=== PATIENT | female | born 1940 | race Asian ===

== ENCOUNTER 2023-09-08 10:06 | Inpatient (IN) ==
[~2023-09-08 10:06] MED LIST: Buffered Lidocaine 1% SYRIN 1 ml INTRADERM ONE; Lactated Ringers 1000 ml BAG 1,000 ML IV SCH
[2023-09-08] MEDS ORDERED: Ondansetron 4 mg VIAL 2 MG/ML 2 ml VIAL IV PRN (10:55)
[2023-09-08] MEDS ORDERED: Naloxone 0.4 mg VIAL 0.4 mg/ml 1 ml VIAL IV PRN (10:55)
[2023-09-08] MEDS ORDERED: fentaNYL 100 mcg/2 ml 50 MCG/ML VIAL IV PRN (10:55)
[2023-09-08] MEDS ORDERED: HYDROmorphone 1 MG/1 ML SYRINGE IV PRN (10:55)
[2023-09-08] MEDS ORDERED: Acetaminophen IV 1 GM/100ML 1,000 MG/100 ML BAG IV PRN (10:55)
[2023-09-08] MEDS ORDERED: Propofol 10 MG/ML 20 ML BTL ONE (11:01)
[2023-09-08] MEDS ORDERED: Dexamethasone IV 4 MG/ML VIAL 1 ml VIAL ONE (11:01)
[2023-09-08] MEDS ORDERED: Lidocaine 2% PF 5 ML VIAL ONE (11:01)
[2023-09-08] MEDS ORDERED: Ondansetron 4 mg VIAL 2 MG/ML 2 ml VIAL ONE (11:01)
[2023-09-08] MEDS ORDERED: fentaNYL 100 mcg/2 ml 50 MCG/ML VIAL ONE (11:02)
[2023-09-08] MEDS ORDERED: Rocuronium 50 mg VIAL 10 mg/ml 5 ml VIAL (50 mg) ONE ×2 (11:02→12:24)
[2023-09-08] MEDS ORDERED: Phenylephrine 40 mcg/mL 10mL (400mcg) SYRINGE ONE (11:04)
[2023-09-08] MEDS ORDERED: CYANOCOBALAMIN 100 MCG PO SCH (11:45)
[2023-09-08] MEDS ORDERED: ETHIODIZED OIL 480 MG/ML IV ONE (12:00)
[2023-09-08] MEDS ORDERED: TOTAL VOLUME ONE (12:30)
[2023-09-08] MEDS ORDERED: CISPLATIN ONE (12:30)
[2023-09-08] MEDS ORDERED: Heparin 2 UNITS/ML IVPREMIX 3,000 UNIT/1,500 ML BAG IV ONE (12:50)
[2023-09-08] MEDS ORDERED: Lidocaine 1% VIAL 10 MG/ML 30 ML VIAL ONE (12:50)
[2023-09-08] MEDS ORDERED: Iohexol 350 (CONTRAST) 100 ML PAK IV ONE ×2 (12:50→13:24)
[2023-09-08] MEDS ORDERED: nitroGLYCERIN DRIP 25,000 MCG/250 ML BTL ONE (14:28)
[2023-09-08] MEDS: KETOROLAC 0.4% RIGHT EYE SCH ×2 (18:15→20:38)
[2023-09-08] MEDS: PREDNISOLONE 1% RIGHT EYE SCH ×2 (18:15→20:38)
[2023-09-09 06:46] LABS: Albumin 2.9 g/dL (3.2-5.2); Calcium 8.9 mg/dL (8.6-10.3); Creatinine, Serum 1.04 mg/dL (0.51-0.95); Globulin 2.9 g/dL (2-4); Potassium 4.9 mmol/L (3.5-5.0); Total Bilirubin 1.4 mg/dL (0.2-1.0); Total Protein 5.8 g/dL (6.4-8.9)
[2023-09-09 06:58] LABS: ABS Lymphocytes 0.5 10^3/uL (1.0-4.8); ABS Monocytes 0.6 10^3/uL (0.0-0.9); ABS Neutrophils 6.1 10^3/uL (1.5-7.6); Eosinophil % 0.1 %; Hematocrit 38.1 % (35-45); Lymphocyte % 6.5 %; Mean Corpuscular Hemoglobin 34.5 pg (27-33); Mean Corpuscular Hgb Conc 34.1 g/dL (31-36); Mean Corpuscular Volume 101.4 fL (80-97); Red Blood Count 3.76 10^6/uL (3.63-4.92); Red Cell Distribution Width 14.1 % (12-17); White Blood Count 7.1 10^3/uL (3.8-11.8)
[2023-09-09 07:29] LABS: Mean Platelet Volume 8.7 fL (7.5-11.2); Platelet Count 66 10^3/uL (150-450)
[2023-09-09] MEDS: PREDNISOLONE 1% RIGHT EYE SCH (09:06)
[2023-09-09] MEDS: KETOROLAC 0.4% RIGHT EYE SCH (09:06)
[2023-09-09 09:15] VITALS: BP 116/71
[2023-09-09] MEDS ORDERED: Benzocaine/Menthol LOZ MT PRN (11:31)
== END 2023-09-09 15:00 | disposition home or self-care (01) | DRG 281 ==
LOC: OR 10:06 → MED 16:51
PROVIDERS: ADMIT Internal Medicine Hematology & Oncology; ATTEND Internal Medicine Hematology & Oncology

== ENCOUNTER 2024-06-28 10:38 | Inpatient (IN) ==
[2024-06-28 11:41] LABS: Hematocrit 38.4 % (35-45); Mean Corpuscular Hemoglobin 36.2 pg (27-33); Mean Corpuscular Hgb Conc 33.9 g/dL (31-36); Mean Corpuscular Volume 106.9 fL (80-97); Red Blood Count 3.59 10^6/uL (3.63-4.92); Red Cell Distribution Width 14.3 % (12-17); White Blood Count 2.9 10^3/uL (3.8-11.8)
[2024-06-28 11:46] LABS: Activated Partial Thrombo Time 35.4 seconds (26.0-38.0); INR 1.11 (0.85-1.14)
[2024-06-28] MEDS: cefTRIAXone 1 gm/50 mL D5W 1 GM/50 ML BAG IV ONE (11:55)
[2024-06-28] MEDS ORDERED: Iohexol 350 (CONTRAST) 100 ML PAK IV ONE ×2 (11:59→12:22)
[2024-06-28] MEDS ORDERED: Lidocaine 1% VIAL 10 MG/ML 30 ML VIAL ONE (11:59)
[2024-06-28] MEDS ORDERED: Heparin 2 UNITS/ML IVPREMIX 3,000 UNIT/1,500 ML BAG IV ONE (11:59)
[2024-06-28] MEDS: NS 0.9% 1000 ml BAG 1,000 ML IV ONE (12:00)
[2024-06-28] MEDS ORDERED: Midazolam 5 mg/5 ml VIAL 1 mg/ml 5 ml VIAL (5 mg) ONE (12:00)
[2024-06-28] MEDS ORDERED: ETHIODIZED OIL 480 MG/ML IV ONE (12:00)
[2024-06-28] MEDS ORDERED: fentaNYL 100 mcg/2 ml 50 MCG/ML VIAL ONE ×2 (12:01→14:03)
[2024-06-28] MEDS ORDERED: Ondansetron 4 mg VIAL 2 MG/ML 2 ml VIAL ONE (12:01)
[2024-06-28 12:04] LABS: ABS Eosinophils 0.1 10^3/uL (0.0-0.5); ABS Lymphocytes 0.6 10^3/uL (1.0-4.8); ABS Monocytes 0.4 10^3/uL (0.0-0.9); ABS Neutrophils 1.7 10^3/uL (1.5-7.6); Eosinophil % 4.2 %; Lymphocyte % 22.2 %; Mean Platelet Volume 7.8 fL (7.5-11.2); Nucleated Red Blood Cells % 0.1 %/100WBC (0.0-0.8); Platelet Count 67 10^3/uL (150-450)
[2024-06-28] MEDS ORDERED: Naloxone 0.4 mg VIAL 0.4 mg/ml 1 ml VIAL IV PUSH PRN (12:09)
[2024-06-28] MEDS ORDERED: Flumazenil 0.5 mg/5 ml 0.1 MG/ML 5 ml VIAL IV PRN (12:09)
[2024-06-28 12:19] LABS: Calcium 9.1 mg/dL (8.6-10.3); Creatinine, Serum 0.71 mg/dL (0.51-0.95); eGFR CKD-EPI 83.3 (>60)
[2024-06-28] MEDS ORDERED: HYDROmorphone 0.5 MG/0.5 ML SYRINGE ONE (14:14)
[2024-06-28] MEDS ORDERED: HYDROmorphone 1 MG/1 ML SYRINGE ONE (14:46)
[2024-06-28] MEDS ORDERED: Morphine 2 MG/ML SYRINGE IV PRN (15:15)
[2024-06-28] MEDS: Midazolam 10 mg/10 ml VIAL 1 mg/ml 10 ml VIAL (10 mg) IV SLOW PU ONE (15:56)
[2024-06-28] MEDS: fentaNYL 100 mcg/2 ml 50 MCG/ML VIAL IV SLOW PU ONE (15:56)
[2024-06-28] MEDS: DOXORUBICIN ONE (15:57)
[2024-06-28] MEDS ORDERED: Prochlorperazine 5 mg/ml 2 ml VIAL (10 mg) ONE (15:58)
[2024-06-28] MEDS: Prochlorperazine 5 mg/ml 2 ml VIAL (10 mg) IV PRN (16:05)
[2024-06-28] MEDS: ETHIODIZED OIL 480 MG/ML IV ONE (17:09)
[2024-06-28] MEDS: NS 0.9% 1000 ml BAG 1,000 ML IV SCH (17:10)
[2024-06-28] MEDS: Enoxaparin 40 MG/0.4 ML SYR SUBCUT SCH ×2 (18:40→20:15)
[2024-06-28] MEDS: Morphine 2 MG/ML SYRINGE IV PRN (20:14)
[2024-06-28] MEDS: Ondansetron 4 mg VIAL 2 MG/ML 2 ml VIAL IV PRN (20:14)
[2024-06-28] MEDS: HYDROmorphone 0.5 MG/0.5 ML SYRINGE IV SLOW PU PRN (23:37)
[2024-06-29 11:35] LABS: Albumin 2.9 g/dL (3.2-5.2); Albumin/Globulin Ratio 0.9 (1-3); Globulin 3.1 g/dL (2-4); Total Bilirubin 3.2 mg/dL (0.2-1.0)
[2024-06-29 17:36] LABS: ABS Lymphocytes 0.3 10^3/uL (1.0-4.8); ABS Monocytes 1.1 10^3/uL (0.0-0.9); ABS Neutrophils 5.7 10^3/uL (1.5-7.6); Hemoglobin 12.8 g/dL (11.5-14.3); Lymphocyte % 4.8 %; Mean Corpuscular Hemoglobin 36.2 pg (27-33); Mean Corpuscular Hgb Conc 33.7 g/dL (31-36); Mean Corpuscular Volume 107.3 fL (80-97); Mean Platelet Volume 7.5 fL (7.5-11.2); Platelet Count 68 10^3/uL (150-450); Red Blood Count 3.54 10^6/uL (3.63-4.92); Red Cell Distribution Width 15.1 % (12-17); White Blood Count 7.2 10^3/uL (3.8-11.8)
[2024-06-29 18:12] LABS: Calcium 8.4 mg/dL (8.6-10.3); Creatinine, Serum 0.8 mg/dL (0.51-0.95); Potassium 4.6 mmol/L (3.5-5.0); eGFR CKD-EPI 72.2 (>60)
[2024-06-29 18:18] LABS: Albumin 2.8 g/dL (3.2-5.2); Globulin 2.9 g/dL (2-4); Total Bilirubin 3.3 mg/dL (0.2-1.0); Total Protein 5.7 g/dL (6.4-8.9)
[2024-06-30 08:58] LABS: ABS Lymphocytes 0.5 10^3/uL (1.0-4.8); ABS Monocytes 1.4 10^3/uL (0.0-0.9); ABS Neutrophils 7.8 10^3/uL (1.5-7.6); ABS Nucleated RBC 0.01 10^3/ul; Eosinophil % 0.1 %; Hemoglobin 12.7 g/dL (11.5-14.3); Lymphocyte % 5.6 %; Mean Corpuscular Hemoglobin 36.4 pg (27-33); Mean Corpuscular Hgb Conc 33.5 g/dL (31-36); Mean Corpuscular Volume 108.7 fL (80-97); Mean Platelet Volume 8.1 fL (7.5-11.2); Nucleated Red Blood Cells % 0.1 %/100WBC (0.0-0.8); Platelet Count 50 10^3/uL (150-450); Red Cell Distribution Width 14.8 % (12-17); White Blood Count 9.7 10^3/uL (3.8-11.8)
[2024-06-30 09:24] LABS: Albumin 2.5 g/dL (3.2-5.2); Alkaline Phosphatase 227 U/L (35-149); Anion Gap 2 mmol/L (2-16); Blood Urea Nitrogen 22 mg/dL (6-24); CO2 Carbon Dioxide 24 mmol/L (22-32); Calcium 7.8 mg/dL (8.6-10.3); Chloride 108 mmol/L (101-111); Globulin 2.5 g/dL (2-4); Glucose 109 mg/dL (70-100); Sodium 134 mmol/L (135-145); Total Bilirubin 3.8 mg/dL (0.2-1.0); eGFR CKD-EPI 84.7 (>60)
[2024-06-30 09:49] LABS: ALT 845 U/L (7-52)
[2024-06-30 11:53] LABS: Potassium Redraw 4.8 mmol/L (3.5-5.0)
[2024-07-01 05:54] LABS: ABS Lymphocytes 0.4 10^3/uL (1.0-4.8); ABS Neutrophils 6.3 10^3/uL (1.5-7.6); ABS Nucleated RBC 0.01 10^3/ul; Eosinophil % 0.4 %; Hematocrit 35.5 % (35-45); Hemoglobin 12.1 g/dL (11.5-14.3); Lymphocyte % 4.6 %; Mean Corpuscular Hemoglobin 36.3 pg (27-33); Mean Corpuscular Volume 106.7 fL (80-97); Mean Platelet Volume 8.1 fL (7.5-11.2); Nucleated Red Blood Cells % 0.1 %/100WBC (0.0-0.8); Platelet Count 44 10^3/uL (150-450); Red Blood Count 3.33 10^6/uL (3.63-4.92); Red Cell Distribution Width 14.5 % (12-17); White Blood Count 7.7 10^3/uL (3.8-11.8)
[2024-07-01 06:29] LABS: Calcium 7.4 mg/dL (8.6-10.3); Creatinine, Serum 0.73 mg/dL (0.51-0.95); Potassium 4.4 mmol/L (3.5-5.0); eGFR CKD-EPI 80.5 (>60)
[2024-07-01 06:49] LABS: Albumin/Globulin Ratio 0.9 (1-3); Globulin 2.2 g/dL (2-4); Total Bilirubin 4.8 mg/dL (0.2-1.0); Total Protein 4.2 g/dL (6.4-8.9)
[2024-07-01] MEDS: Iohexol 350 (CONTRAST) 500 ML MDV IV ONE (09:26)
[2024-07-01] MEDS ORDERED: Morphine 2 MG/ML SYRINGE IV PRN (10:34)
[2024-07-01 12:06] LABS: INR 1.67 (0.85-1.14)
[2024-07-02 05:30] LABS: ABS Eosinophils 0.1 10^3/uL (0.0-0.5); ABS Lymphocytes 0.3 10^3/uL (1.0-4.8); ABS Monocytes 1.1 10^3/uL (0.0-0.9); ABS Neutrophils 5.5 10^3/uL (1.5-7.6); ABS Nucleated RBC 0.01 10^3/ul; Eosinophil % 1.9 %; Hemoglobin 11.1 g/dL (11.5-14.3); Lymphocyte % 4.8 %; Mean Corpuscular Hemoglobin 37.3 pg (27-33); Mean Corpuscular Hgb Conc 34.8 g/dL (31-36); Mean Corpuscular Volume 107.1 fL (80-97); Mean Platelet Volume 8.1 fL (7.5-11.2); Nucleated Red Blood Cells % 0.1 %/100WBC (0.0-0.8); Platelet Count 39 10^3/uL (150-450); Red Blood Count 2.99 10^6/uL (3.63-4.92); Red Cell Distribution Width 14.2 % (12-17)
[2024-07-02 05:47] LABS: Albumin 1.8 g/dL (3.2-5.2); Albumin/Globulin Ratio 0.9 (1-3); Calcium 7.4 mg/dL (8.6-10.3); Creatinine, Serum 0.71 mg/dL (0.51-0.95); Globulin 2.1 g/dL (2-4); Potassium 4.2 mmol/L (3.5-5.0); Total Protein 3.9 g/dL (6.4-8.9); eGFR CKD-EPI 83.3 (>60)
[2024-07-02] MEDS: Senna TAB 8.6 mg TAB PO SCH (22:21)
[2024-07-03 07:30] LABS: Albumin 2.1 g/dL (3.2-5.2); Creatinine, Serum 0.69 mg/dL (0.51-0.95); Globulin 2.2 g/dL (2-4); Potassium 4.6 mmol/L (3.5-5.0); Total Bilirubin 4.7 mg/dL (0.2-1.0); Total Protein 4.3 g/dL (6.4-8.9)
[2024-07-03] MEDS: Polyethylene Glycol 3350 17 GM PACKET PO PRN (09:06)
[2024-07-04] MEDS ORDERED: Senna TAB 8.6 mg TAB PO PRN (10:02)
[2024-07-04 10:36] LABS: ABS Eosinophils 0.2 10^3/uL (0.0-0.5); ABS Lymphocytes 0.3 10^3/uL (1.0-4.8); ABS Neutrophils 4.3 10^3/uL (1.5-7.6); Eosinophil % 2.9 %; Hematocrit 31.1 % (35-45); Hemoglobin 10.7 g/dL (11.5-14.3); Lymphocyte % 5.5 %; Mean Corpuscular Hgb Conc 34.5 g/dL (31-36); Mean Corpuscular Volume 107.3 fL (80-97); Mean Platelet Volume 7.9 fL (7.5-11.2); Platelet Count 48 10^3/uL (150-450); Red Cell Distribution Width 14.6 % (12-17); White Blood Count 5.7 10^3/uL (3.8-11.8)
[2024-07-04 11:34] LABS: Albumin 2.1 g/dL (3.2-5.2); Albumin/Globulin Ratio 1.1 (1-3); Calcium 7.6 mg/dL (8.6-10.3); Creatinine, Serum 0.64 mg/dL (0.51-0.95); Potassium 4.5 mmol/L (3.5-5.0); Total Bilirubin 5.5 mg/dL (0.2-1.0); Total Protein 4.1 g/dL (6.4-8.9); eGFR CKD-EPI 86.5 (>60)
[2024-07-04 20:53] LABS: Hematocrit 31.7 % (35-45); Hemoglobin 10.8 g/dL (11.5-14.3); Mean Corpuscular Hemoglobin 36.3 pg (27-33); Mean Corpuscular Hgb Conc 34.2 g/dL (31-36); Mean Corpuscular Volume 106.3 fL (80-97); Mean Platelet Volume 7.4 fL (7.5-11.2); Platelet Count 50 10^3/uL (150-450); Red Blood Count 2.99 10^6/uL (3.63-4.92); Red Cell Distribution Width 14.5 % (12-17); White Blood Count 6.1 10^3/uL (3.8-11.8)
[2024-07-04] MEDS: Pantoprazole VIAL 40 MG VIAL IV ONE (22:59)
[2024-07-05 07:27] LABS: Albumin 2.1 g/dL (3.2-5.2); Calcium 7.9 mg/dL (8.6-10.3); Creatinine, Serum 0.65 mg/dL (0.51-0.95); Globulin 2.1 g/dL (2-4); Potassium 4.8 mmol/L (3.5-5.0); Total Bilirubin 5.2 mg/dL (0.2-1.0); Total Protein 4.2 g/dL (6.4-8.9); eGFR CKD-EPI 86.2 (>60)
[2024-07-05 07:39] LABS: ABS Eosinophils 0.2 10^3/uL (0.0-0.5); ABS Lymphocytes 0.5 10^3/uL (1.0-4.8); ABS Neutrophils 4.6 10^3/uL (1.5-7.6); Eosinophil % 2.8 %; Hematocrit 30.4 % (35-45); Hemoglobin 10.6 g/dL (11.5-14.3); Lymphocyte % 8.3 %; Mean Corpuscular Hemoglobin 37.1 pg (27-33); Mean Corpuscular Hgb Conc 34.9 g/dL (31-36); Mean Corpuscular Volume 106.4 fL (80-97); Mean Platelet Volume 7.9 fL (7.5-11.2); Platelet Count 50 10^3/uL (150-450); Red Blood Count 2.85 10^6/uL (3.63-4.92); Red Cell Distribution Width 14.3 % (12-17); White Blood Count 6.3 10^3/uL (3.8-11.8)
[2024-07-05] MEDS: Polyethylene Glycol 3350 17 GM PACKET PO SCH (08:28)
[2024-07-05] MEDS: Pantoprazole VIAL 40 MG VIAL IV SCH (08:40)
[2024-07-05] MEDS ORDERED: Magnesium Hydroxide LIQ 30 ML UDC PO PRN (09:02)
[2024-07-05] MEDS: Iohexol 350 (CONTRAST) 500 ML MDV IV ONE (13:22)
[2024-07-05] MEDS: Octreotide Acetate 50 MCG in NS 0.9% 50 ML 50 ML IV ONE (21:32)
[2024-07-05] MEDS: Octreotide Acetate 500 MCG in NS 0.9% 100 ml BAG 100 ML IV SCH (22:45)
[2024-07-05] MEDS: Senna TAB 8.6 mg TAB PO SCH (22:47)
[2024-07-06 10:14] LABS: Ferritin 431.8 ng/mL (11-307)
[2024-07-06] MEDS ORDERED: Midazolam 10 mg/10 ml VIAL 1 mg/ml 10 ml VIAL (10 mg) ONE (10:57)
[2024-07-06] MEDS ORDERED: fentaNYL 100 mcg/2 ml 50 MCG/ML VIAL ONE (10:58)
[2024-07-07 12:29] LABS: ABS Eosinophils 0.1 10^3/uL (0.0-0.5); ABS Lymphocytes 0.3 10^3/uL (1.0-4.8); ABS Monocytes 0.8 10^3/uL (0.0-0.9); ABS Neutrophils 3.3 10^3/uL (1.5-7.6); Eosinophil % 2.2 %; Hematocrit 29.6 % (35-45); Lymphocyte % 5.9 %; Mean Corpuscular Hemoglobin 36.4 pg (27-33); Mean Corpuscular Hgb Conc 33.6 g/dL (31-36); Mean Corpuscular Volume 108.3 fL (80-97); Mean Platelet Volume 7.4 fL (7.5-11.2); Platelet Count 74 10^3/uL (150-450); Red Blood Count 2.73 10^6/uL (3.63-4.92); Red Cell Distribution Width 14.8 % (12-17); White Blood Count 4.4 10^3/uL (3.8-11.8)
[2024-07-07 12:51] LABS: ALT 106 U/L (7-52); AST 33 U/L (13-39); Albumin 2.1 g/dL (3.2-5.2); Albumin/Globulin Ratio 0.9 (1-3); Alkaline Phosphatase 146 U/L (35-149); Blood Urea Nitrogen 10 mg/dL (6-24); CO2 Carbon Dioxide 32 mmol/L (22-32); Calcium 7.5 mg/dL (8.6-10.3); Chloride 100 mmol/L (101-111); Creatinine, Serum 0.76 mg/dL (0.51-0.95); Globulin 2.3 g/dL (2-4); Glucose 138 mg/dL (70-100); Potassium 4.8 mmol/L (3.5-5.0); Sodium 132 mmol/L (135-145); Total Bilirubin 6.4 mg/dL (0.2-1.0); Total Protein 4.4 g/dL (6.4-8.9); eGFR CKD-EPI 76.7 (>60)
[2024-07-07 13:57] VITALS: BP 128/62
[2024-07-07] MEDS ORDERED: Lactulose 30 ml UDC PO SCH (21:00)
[2024-07-09 14:40] LABS: Hepatitis Be Antibody Negative (Negative); Hepatitis Be Antigen Negative (Negative)
== END 2024-07-07 14:30 | disposition home or self-care (01) | DRG 950 ==
LOC: SSU 10:38 → CHICATH 10:38
PROVIDERS: ADMIT Student in an Organized Health Care Education/Training Program; ATTEND Student in an Organized Health Care Education/Training Program

== ENCOUNTER 2024-08-29 23:53 | Inpatient (IN) ==
[2024-08-30 02:10] LABS: ABS Eosinophils 0.1 10^3/uL (0.0-0.5); ABS Lymphocytes 0.5 10^3/uL (1.0-4.8); ABS Monocytes 0.6 10^3/uL (0.0-0.9); ABS Neutrophils 2.7 10^3/uL (1.5-7.6); Eosinophil % 2.5 %; Hematocrit 35.4 % (35-45); Hemoglobin 12.1 g/dL (11.5-14.3); Lymphocyte % 12.3 %; Mean Corpuscular Hemoglobin 36.6 pg (27-33); Mean Corpuscular Hgb Conc 34.3 g/dL (31-36); Mean Corpuscular Volume 106.8 fL (80-97); Mean Platelet Volume 7.7 fL (7.5-11.2); Nucleated Red Blood Cells % 0.1 %/100WBC (0.0-0.8); Platelet Count 63 10^3/uL (150-450); Red Blood Count 3.31 10^6/uL (3.63-4.92); White Blood Count 3.9 10^3/uL (3.8-11.8)
[2024-08-30 02:16] LABS: Activated Partial Thrombo Time 35.5 seconds (26.0-38.0); INR 1.42 (0.85-1.14)
[2024-08-30 02:27] LABS: High Sens Troponin Baseline 11 pg/mL (<15)
[2024-08-30 02:41] LABS: ALT 47 U/L (7-52); AST 55 U/L (13-39); Albumin 2.3 g/dL (3.5-5.7); Albumin/Globulin Ratio 0.7 (1-3); Alkaline Phosphatase 248 U/L (35-149); Blood Urea Nitrogen 9 mg/dL (6-24); C Reactive Protein 13.18 mg/L (<8.01); CO2 Carbon Dioxide 31 mmol/L (22-32); Calcium 8.4 mg/dL (8.6-10.3); Chloride 105 mmol/L (101-111); Creatinine, Serum 0.73 mg/dL (0.51-0.95); Globulin 3.1 g/dL (2-4); Glucose 115 mg/dL (70-100); Potassium 4.2 mmol/L (3.5-5.0); Sodium 136 mmol/L (135-145); Total Bilirubin 4.6 mg/dL (0.2-1.0); Total Protein 5.4 g/dL (6.4-8.9); eGFR CKD-EPI 80.5 (>60)
[2024-08-30 03:49] LABS: High Sensitivity Troponin 1 Hr 11 pg/mL (<15)
[2024-08-30] MEDS: Iohexol 300 (CONTRAST) 10 ML SDV IV ONE (04:30)
[2024-08-30 06:36] LABS: Urine Appearance Clear; Urine Bilirubin Negative (Negative); Urine Blood Negative (Negative); Urine Color Yellow; Urine Glucose Negative (Negative); Urine Ketones Negative (Negative); Urine Nitrite Negative (Negative); Urine Protein Negative (Negative); Urine Specific Gravity 1.013 (1.002-1.030); Urine Urobilinogen 1+ (Negative)
[2024-08-30] MEDS ORDERED: Lidocaine 2% JELLY 6 ML Topical TOPICAL ONE (12:50)
[2024-08-30] MEDS: Lidocaine 2% JELLY 6 ML Topical TOPICAL ONE (13:30)
[2024-08-30] MEDS: Pantoprazole VIAL 40 MG VIAL IV SCH (16:38)
[2024-08-30] MEDS: Lactulose 300 ML for PR 200 GM/300 ML BTL PR SCH (16:52)
[2024-08-31 07:54] LABS: INR 1.64 (0.85-1.14)
[2024-08-31 08:03] LABS: Albumin/Globulin Ratio 0.8 (1-3); Calcium 8.4 mg/dL (8.6-10.3); Creatinine, Serum 0.83 mg/dL (0.51-0.95); Globulin 2.6 g/dL (2-4); Potassium 4.8 mmol/L (3.5-5.0); Total Bilirubin 5.7 mg/dL (0.2-1.0); Total Protein 4.6 g/dL (6.4-8.9)
[2024-08-31 08:10] LABS: ABS Eosinophils 0.1 10^3/uL (0.0-0.5); ABS Lymphocytes 0.5 10^3/uL (1.0-4.8); ABS Neutrophils 5.2 10^3/uL (1.5-7.6); Eosinophil % 0.9 %; Hematocrit 32.9 % (35-45); Hemoglobin 11.1 g/dL (11.5-14.3); Lymphocyte % 7.2 %; Mean Corpuscular Hemoglobin 36.6 pg (27-33); Mean Corpuscular Hgb Conc 33.7 g/dL (31-36); Mean Corpuscular Volume 108.4 fL (80-97); Mean Platelet Volume 7.9 fL (7.5-11.2); Platelet Count 72 10^3/uL (150-450); Red Blood Count 3.03 10^6/uL (3.63-4.92); Red Cell Distribution Width 16.7 % (12-17); White Blood Count 6.8 10^3/uL (3.8-11.8)
[2024-08-31] MEDS: Lactulose 30 ml UDC PO SCH (13:41)
[2024-08-31] MEDS: Albumin Human 25% 25 GM/100 ML BTL IV ONE (13:56)
[2024-08-31] MEDS: Lactulose 30 ml UDC PO ONE (16:16)
[2024-08-31] MEDS: Furosemide 20 mg/2 ml IV VIAL IV ONE (16:16)
[2024-08-31] MEDS: Lidocaine PATCH 5% PATCH TRANSDERM SCH (16:23)
[2024-09-01 06:57] LABS: INR 1.56 (0.85-1.14)
[2024-09-01 07:20] LABS: Albumin 2.7 g/dL (3.5-5.7); Calcium 8.6 mg/dL (8.6-10.3); Creatinine, Serum 0.77 mg/dL (0.51-0.95); Globulin 2.8 g/dL (2-4); Potassium 3.8 mmol/L (3.5-5.0); Total Bilirubin 4.8 mg/dL (0.2-1.0); Total Protein 5.5 g/dL (6.4-8.9); eGFR CKD-EPI 75.5 (>60)
[2024-09-01 07:31] LABS: ABS Eosinophils 0.1 10^3/uL (0.0-0.5); ABS Lymphocytes 0.6 10^3/uL (1.0-4.8); ABS Monocytes 0.9 10^3/uL (0.0-0.9); ABS Neutrophils 4.2 10^3/uL (1.5-7.6); ABS Nucleated RBC 0.01 10^3/ul; Eosinophil % 1.9 %; Hematocrit 32.9 % (35-45); Hemoglobin 11.4 g/dL (11.5-14.3); Lymphocyte % 10.5 %; Mean Corpuscular Hemoglobin 36.9 pg (27-33); Mean Corpuscular Hgb Conc 34.6 g/dL (31-36); Mean Corpuscular Volume 106.7 fL (80-97); Mean Platelet Volume 7.7 fL (7.5-11.2); Nucleated Red Blood Cells % 0.2 %/100WBC (0.0-0.8); Platelet Count 66 10^3/uL (150-450); Red Blood Count 3.09 10^6/uL (3.63-4.92); Red Cell Distribution Width 16.9 % (12-17); White Blood Count 5.8 10^3/uL (3.8-11.8)
[2024-09-02 05:45] LABS: ABS Eosinophils 0.2 10^3/uL (0.0-0.5); ABS Lymphocytes 0.7 10^3/uL (1.0-4.8); ABS Monocytes 0.9 10^3/uL (0.0-0.9); ABS Neutrophils 3.6 10^3/uL (1.5-7.6); ABS Nucleated RBC 0.01 10^3/ul; Eosinophil % 2.9 %; Hematocrit 30.2 % (35-45); Hemoglobin 10.5 g/dL (11.5-14.3); Lymphocyte % 13.6 %; Mean Corpuscular Hemoglobin 36.6 pg (27-33); Mean Corpuscular Hgb Conc 34.8 g/dL (31-36); Mean Corpuscular Volume 105.2 fL (80-97); Nucleated Red Blood Cells % 0.2 %/100WBC (0.0-0.8); Platelet Count 64 10^3/uL (150-450); Red Blood Count 2.87 10^6/uL (3.63-4.92); Red Cell Distribution Width 16.3 % (12-17); White Blood Count 5.4 10^3/uL (3.8-11.8)
[2024-09-02 05:59] LABS: Calcium 8.2 mg/dL (8.6-10.3); Creatinine, Serum 0.81 mg/dL (0.51-0.95); Magnesium 1.8 mg/dL (1.9-2.7); Potassium 3.7 mmol/L (3.5-5.0); eGFR CKD-EPI 71.1 (>60)
[2024-09-02] MEDS: Magnesium Sulfate 2 gm BAG 2 GM/50 ML BAG IVPB ONE (07:46)
[2024-09-02 08:00] LABS: Albumin 2.3 g/dL (3.5-5.7); Albumin/Globulin Ratio 0.9 (1-3); Direct Bilirubin 1.5 mg/dL (0.03-0.18); Globulin 2.5 g/dL (2-4); Indirect Bilirubin 1.9 mg/dL (0.3-1.0); Total Bilirubin 3.4 mg/dL (0.2-1.0); Total Protein 4.8 g/dL (6.4-8.9)
[2024-09-02] MEDS ORDERED: Polyethylene Glycol 3350 17 GM PACKET PO PRN (09:37)
[2024-09-03 06:55] LABS: ABS Eosinophils 0.2 10^3/uL (0.0-0.5); ABS Lymphocytes 0.7 10^3/uL (1.0-4.8); ABS Monocytes 0.7 10^3/uL (0.0-0.9); ABS Nucleated RBC 0.01 10^3/ul; Eosinophil % 3.4 %; Hematocrit 30.2 % (35-45); Hemoglobin 10.7 g/dL (11.5-14.3); Lymphocyte % 14.6 %; Mean Corpuscular Hemoglobin 37.2 pg (27-33); Mean Corpuscular Hgb Conc 35.3 g/dL (31-36); Mean Corpuscular Volume 105.3 fL (80-97); Mean Platelet Volume 7.8 fL (7.5-11.2); Nucleated Red Blood Cells % 0.1 %/100WBC (0.0-0.8); Platelet Count 59 10^3/uL (150-450); Red Blood Count 2.87 10^6/uL (3.63-4.92); Red Cell Distribution Width 16.4 % (12-17); White Blood Count 4.6 10^3/uL (3.8-11.8)
[2024-09-03 07:04] LABS: Calcium 7.8 mg/dL (8.6-10.3); Creatinine, Serum 0.77 mg/dL (0.51-0.95); eGFR CKD-EPI 75.5 (>60)
[2024-09-03 12:02] LABS: High Sensitivity Troponin 1 Hr 21 pg/mL (<15)
[2024-09-03] MEDS: Lactulose 30 ml UDC PO ONE (13:19)
[2024-09-03] MEDS: Magnesium Hydroxide LIQ 30 ML UDC PO SCH (21:49)
[2024-09-04 06:33] LABS: Calcium 8.2 mg/dL (8.6-10.3); Creatinine, Serum 0.77 mg/dL (0.51-0.95); Potassium 3.9 mmol/L (3.5-5.0); eGFR CKD-EPI 75.5 (>60)
[2024-09-04 07:17] LABS: ABS Eosinophils 0.2 10^3/uL (0.0-0.5); ABS Lymphocytes 0.7 10^3/uL (1.0-4.8); ABS Monocytes 0.7 10^3/uL (0.0-0.9); ABS Neutrophils 2.4 10^3/uL (1.5-7.6); Eosinophil % 4.2 %; Hemoglobin 10.7 g/dL (11.5-14.3); Lymphocyte % 17.9 %; Mean Corpuscular Hemoglobin 36.5 pg (27-33); Mean Corpuscular Hgb Conc 34.4 g/dL (31-36); Mean Corpuscular Volume 106.2 fL (80-97); Mean Platelet Volume 8.1 fL (7.5-11.2); Nucleated Red Blood Cells % 0.1 %/100WBC (0.0-0.8); Platelet Count 63 10^3/uL (150-450); Red Blood Count 2.92 10^6/uL (3.63-4.92); Red Cell Distribution Width 16.9 % (12-17); White Blood Count 3.9 10^3/uL (3.8-11.8)
[2024-09-04 08:11] LABS: Total Bilirubin 3.8 mg/dL (0.2-1.0)
[2024-09-04] MEDS: Polyethylene Glycol 3350 17 GM PACKET PO SCH (08:26)
[2024-09-04] MEDS: Magnesium Hydroxide LIQ 30 ML UDC PO SCH (08:28)
[2024-09-05 07:31] LABS: Calcium 7.9 mg/dL (8.6-10.3); Creatinine, Serum 0.69 mg/dL (0.51-0.95); Magnesium 2.1 mg/dL (1.9-2.7); Potassium 4.3 mmol/L (3.5-5.0)
[2024-09-05 07:41] LABS: ABS Eosinophils 0.2 10^3/uL (0.0-0.5); ABS Lymphocytes 0.7 10^3/uL (1.0-4.8); ABS Monocytes 0.8 10^3/uL (0.0-0.9); ABS Neutrophils 2.5 10^3/uL (1.5-7.6); ABS Nucleated RBC 0.01 10^3/ul; Eosinophil % 4.7 %; Hematocrit 35.1 % (35-45); Hemoglobin 11.8 g/dL (11.5-14.3); Lymphocyte % 16.7 %; Mean Corpuscular Hemoglobin 36.3 pg (27-33); Mean Corpuscular Hgb Conc 33.6 g/dL (31-36); Mean Corpuscular Volume 108.1 fL (80-97); Mean Platelet Volume 8.2 fL (7.5-11.2); Nucleated Red Blood Cells % 0.3 %/100WBC (0.0-0.8); Platelet Count 71 10^3/uL (150-450); Red Blood Count 3.25 10^6/uL (3.63-4.92); Red Cell Distribution Width 17.2 % (12-17); White Blood Count 4.2 10^3/uL (3.8-11.8)
[2024-09-06 06:14] LABS: Blood Urea Nitrogen 9 mg/dL (6-24); CO2 Carbon Dioxide 33 mmol/L (22-32); Calcium 8.4 mg/dL (8.6-10.3); Chloride 102 mmol/L (101-111); Creatinine, Serum 0.74 mg/dL (0.51-0.95); Glucose 107 mg/dL (70-100); Magnesium 2.4 mg/dL (1.9-2.7); Potassium 4.2 mmol/L (3.5-5.0); Sodium 135 mmol/L (135-145); eGFR CKD-EPI 79.2 (>60)
[2024-09-06 07:07] LABS: ABS Basophils 0.1 10^3/uL (0.0-0.1); ABS Eosinophils 0.1 10^3/uL (0.0-0.5); ABS Lymphocytes 1.1 10^3/uL (1.0-4.8); ABS Monocytes 0.7 10^3/uL (0.0-0.9); ABS Neutrophils 2.9 10^3/uL (1.5-7.6); ABS Nucleated RBC 0.01 10^3/ul; Eosinophil % 3.1 %; Hematocrit 33.4 % (35-45); Hemoglobin 11.7 g/dL (11.5-14.3); Lymphocyte % 22.2 %; Mean Corpuscular Volume 105.8 fL (80-97); Mean Platelet Volume 7.9 fL (7.5-11.2); Nucleated Red Blood Cells % 0.1 %/100WBC (0.0-0.8); Platelet Count 70 10^3/uL (150-450); Red Blood Count 3.16 10^6/uL (3.63-4.92); Red Cell Distribution Width 17.2 % (12-17); White Blood Count 4.8 10^3/uL (3.8-11.8)
[2024-09-06 10:14] VITALS: BP 122/68
== END 2024-09-06 13:10 | disposition home or self-care (01) ==
LOC: EDHOLD 23:53 → ED 23:53 → SUATTDRO 08-30 09:22 → MEDTELE 08-30 14:08
PROVIDERS: ADMIT Internal Medicine; ATTEND Student in an Organized Health Care Education/Training Program

== ENCOUNTER 2024-09-18 12:15 | Inpatient (IN) ==
[2024-09-18] MEDS ORDERED: Rocuronium 50 mg VIAL 10 mg/ml 5 ml VIAL (50 mg) ONE (12:25)
[2024-09-18] MEDS ORDERED: Succinylcholine 200 mg VIAL 20 mg/ml 10 ml VIAL (200 mg) ONE (12:25)
[2024-09-18] MEDS: Midazolam 2 mg/2 ml VIAL 1 mg/ml 2 ml VIAL (2 mg) IV SLOW PU ONE ×2 (12:28→13:31)
[2024-09-18] MEDS ORDERED: Propofol 10 mg/ml 100 ML BTL 1,000 MG/100 ML BTL ONE (12:35)
[2024-09-18] MEDS: Propofol 10 mg/ml 100 ML BTL 1,000 MG/100 ML BTL IV SCH (12:40)
[2024-09-18 12:42] LABS: ABS Lymphocytes 0.9 10^3/uL (1.0-4.8); ABS Monocytes 0.5 10^3/uL (0.0-0.9); ABS Neutrophils 2.9 10^3/uL (1.5-7.6); ABS Nucleated RBC 0.01 10^3/ul; Eosinophil % 0.9 %; Hematocrit 35.6 % (35-45); Hemoglobin 12.1 g/dL (11.5-14.3); Lymphocyte % 20.1 %; Mean Corpuscular Hemoglobin 36.2 pg (27-33); Mean Corpuscular Volume 106.5 fL (80-97); Mean Platelet Volume 7.8 fL (7.5-11.2); Nucleated Red Blood Cells % 0.2 %/100WBC (0.0-0.8); Platelet Count 83 10^3/uL (150-450); Red Blood Count 3.35 10^6/uL (3.63-4.92); Red Cell Distribution Width 18.9 % (12-17); White Blood Count 4.3 10^3/uL (3.8-11.8)
[2024-09-18 12:49] LABS: Activated Partial Thrombo Time 30.9 seconds (26.0-38.0); INR 1.37 (0.85-1.14)
[2024-09-18] MEDS ORDERED: levETIRAcetam IV 1,500 MG in NS 0.9% 100 ml BAG 100 ML IVPB ONE (12:57)
[2024-09-18] MEDS: NS 0.9% 1000 ml BAG 1,000 ML IV ONE (13:07)
[2024-09-18 13:44] LABS: Albumin 2.5 g/dL (3.5-5.7); Albumin/Globulin Ratio 0.8 (1-3); Calcium 8.6 mg/dL (8.6-10.3); Creatinine, Serum 0.76 mg/dL (0.51-0.95); Direct Bilirubin 1.1 mg/dL (0.03-0.18); Globulin 3.2 g/dL (2-4); HDL Cholesterol 28.9 mg/dL; Indirect Bilirubin 4.7 mg/dL (0.3-1.0); Potassium 4.8 mmol/L (3.5-5.0); Total Bilirubin 5.8 mg/dL (0.2-1.0); Total Protein 5.7 g/dL (6.4-8.9); eGFR CKD-EPI 76.7 (>60)
[2024-09-18] MEDS: LEVETIRACETAM IVPB ONE (13:53)
[2024-09-18] MEDS: NS IVPB ONE (13:53)
[2024-09-18 14:03] LABS: Urine Appearance Clear; Urine Bilirubin Negative (Negative); Urine Blood Negative (Negative); Urine Color Light-Yellow; Urine Glucose Negative (Negative); Urine Ketones Negative (Negative); Urine Nitrite Negative (Negative); Urine Protein Negative (Negative); Urine Specific Gravity 1.017 (1.002-1.030); Urine Urobilinogen Negative (Negative); Urine pH 7.5 (5.0-8.0)
[2024-09-18 15:05] LABS: TSH Ultra Thyroid Stim Horm 1.41 mcIU/mL (0.34-5.60)
[2024-09-18 15:06] LABS: Free T4 1.24 ng/dL (0.61-1.12)
[2024-09-18] MEDS: Enoxaparin 40 MG/0.4 ML SYR SUBCUT SCH (17:51)
[2024-09-18] MEDS: Pantoprazole VIAL 40 MG VIAL IV SCH (17:51)
[2024-09-18] MEDS: Lactulose 30 ml UDC PO SCH (17:51)
[2024-09-18] MEDS: Piperacillin/Tazobac 3.375 BAG 3.375 GM/100 ML BAG IV ONE (18:04)
[2024-09-18 20:08] LABS: Urine Appearance Clear; Urine Bilirubin Negative (Negative); Urine Blood 1+ (Negative); Urine Color Light-Yellow; Urine Glucose Negative (Negative); Urine Ketones Negative (Negative); Urine Nitrite Negative (Negative); Urine Protein Negative (Negative); Urine Specific Gravity 1.022 (1.002-1.030); Urine Urobilinogen Negative (Negative)
[2024-09-18] MEDS: Magnesium Hydroxide LIQ 30 ML UDC PO SCH (20:12)
[2024-09-18 20:13] LABS: Urine Bacteria Absent /HPF (Absent); Urine Red Blood Cell Trace(0-2/hpf) /HPF (0-Trace); Urine Squamous Epithelial Cell Present /HPF (Absent); Urine White Blood Cell Trace(0-5/hpf) /HPF (0-Trace)
[2024-09-18] MEDS: Norepinephrine 4 MG/250mL D5W 4,000 MCG/250 ML BAG IV SCH (21:42)
[2024-09-19] MEDS: Chlorhexidine MOUTHWASH 0.12% 15 ML UDC TOPICAL SCH (01:22)
[2024-09-19] MEDS: levETIRAcetam 500 MG IVPREMIX 500 MG/100 ML BAG IV SCH (01:23)
[2024-09-19 05:11] LABS: ABS Eosinophils 0.1 10^3/uL (0.0-0.5); ABS Lymphocytes 0.9 10^3/uL (1.0-4.8); ABS Monocytes 0.7 10^3/uL (0.0-0.9); ABS Neutrophils 3.2 10^3/uL (1.5-7.6); ABS Nucleated RBC 0.01 10^3/ul; Eosinophil % 2.3 %; Hematocrit 30.5 % (35-45); Hemoglobin 10.5 g/dL (11.5-14.3); Lymphocyte % 17.8 %; Mean Corpuscular Hemoglobin 37.2 pg (27-33); Mean Corpuscular Hgb Conc 34.4 g/dL (31-36); Mean Corpuscular Volume 108.1 fL (80-97); Mean Platelet Volume 7.6 fL (7.5-11.2); Nucleated Red Blood Cells % 0.1 %/100WBC (0.0-0.8); Platelet Count 60 10^3/uL (150-450); Red Blood Count 2.82 10^6/uL (3.63-4.92); Red Cell Distribution Width 19.5 % (12-17)
[2024-09-19 05:49] LABS: Calcium 8.2 mg/dL (8.6-10.3); Creatinine, Serum 0.76 mg/dL (0.51-0.95); Magnesium 2.2 mg/dL (1.9-2.7); Phosphorus 2.9 mg/dL (2.5-5.0); Potassium 4.5 mmol/L (3.5-5.0); eGFR CKD-EPI 76.7 (>60)
[2024-09-19] MEDS: levETIRAcetam 500 MG IVPREMIX 500 MG/100 ML BAG IV ONE (08:59)
[2024-09-19] MEDS: Furosemide 20 mg/2 ml IV VIAL IV SLOW PU SCH (09:08)
[2024-09-19] MEDS: Lactulose 30 ml UDC NG TUBE SCH (14:20)
[2024-09-19] MEDS: Thiamine 100 MG/ML 2 ml VIAL 500 MG in NS 0.9% 250 ml 250 ML IV ONE (15:39)
[2024-09-19] MEDS: Magnesium Hydroxide LIQ 30 ML UDC NG TUBE SCH (19:44)
[2024-09-19] MEDS: levETIRAcetam 1000MG IVPREMIX 1,000 MG/100 ML BAG IVPB SCH (19:51)
[2024-09-20] MEDS: fentaNYL 100 mcg/2 ml 50 MCG/ML VIAL IV SLOW PU PRN (05:08)
[2024-09-20 05:13] LABS: ABS Basophils 0.1 10^3/uL (0.0-0.1); ABS Eosinophils 0.1 10^3/uL (0.0-0.5); ABS Lymphocytes 1.1 10^3/uL (1.0-4.8); ABS Monocytes 1.2 10^3/uL (0.0-0.9); ABS Nucleated RBC 0.01 10^3/ul; Eosinophil % 0.9 %; Hemoglobin 11.5 g/dL (11.5-14.3); Lymphocyte % 14.5 %; Mean Corpuscular Hemoglobin 37.5 pg (27-33); Mean Corpuscular Hgb Conc 34.8 g/dL (31-36); Mean Corpuscular Volume 107.8 fL (80-97); Mean Platelet Volume 7.6 fL (7.5-11.2); Nucleated Red Blood Cells % 0.2 %/100WBC (0.0-0.8); Platelet Count 72 10^3/uL (150-450); Red Blood Count 3.06 10^6/uL (3.63-4.92); Red Cell Distribution Width 19.7 % (12-17); White Blood Count 7.4 10^3/uL (3.8-11.8)
[2024-09-20 05:44] LABS: Albumin 2.1 g/dL (3.5-5.7); Albumin/Globulin Ratio 0.7 (1-3); Calcium 8.3 mg/dL (8.6-10.3); Creatinine, Serum 0.86 mg/dL (0.51-0.95); Globulin 2.9 g/dL (2-4); Potassium 4.3 mmol/L (3.5-5.0); Total Bilirubin 5.1 mg/dL (0.2-1.0); eGFR CKD-EPI 66.2 (>60)
[2024-09-20 08:49] LABS: Magnesium 2.2 mg/dL (1.9-2.7)
[2024-09-20] MEDS: Thiamine 100 MG/ML 2 ml VIAL 250 MG in NS 0.9% 100 ml BAG 100 ML IV SCH (12:48)
[2024-09-20] MEDS ORDERED: Acetaminophen IV 1 GM/100ML 1,000 MG/100 ML BAG IV PRN (21:38)
[2024-09-21 04:30] LABS: ABS Basophils 0.1 10^3/uL (0.0-0.1); ABS Eosinophils 0.1 10^3/uL (0.0-0.5); ABS Lymphocytes 1.5 10^3/uL (1.0-4.8); ABS Monocytes 1.5 10^3/uL (0.0-0.9); ABS Neutrophils 5.7 10^3/uL (1.5-7.6); Eosinophil % 1.1 %; Hematocrit 33.4 % (35-45); Hemoglobin 11.5 g/dL (11.5-14.3); Mean Corpuscular Hemoglobin 37.3 pg (27-33); Mean Corpuscular Hgb Conc 34.3 g/dL (31-36); Mean Corpuscular Volume 108.7 fL (80-97); Mean Platelet Volume 7.2 fL (7.5-11.2); Platelet Count 71 10^3/uL (150-450); Red Blood Count 3.08 10^6/uL (3.63-4.92); Red Cell Distribution Width 20.1 % (12-17); White Blood Count 8.9 10^3/uL (3.8-11.8)
[2024-09-21 05:07] LABS: Calcium 8.3 mg/dL (8.6-10.3); Creatinine, Serum 0.91 mg/dL (0.51-0.95); Magnesium 2.3 mg/dL (1.9-2.7); Potassium 4.1 mmol/L (3.5-5.0); eGFR CKD-EPI 61.8 (>60)
[2024-09-21] MEDS ORDERED: Sulfur Hexaflouride MICROSPHR 25 MG VIAL IV PRN (09:47)
[2024-09-21] MEDS: Lactulose 30 ml UDC NG TUBE SCH (09:54)
[2024-09-21] MEDS: cefTRIAXone 1 gm/50 mL D5W 1 GM/50 ML BAG IV SCH (11:19)
[2024-09-21] MEDS: Thiamine 100 MG/ML 2 ml VIAL 100 MG in NS 0.9% 50 ML 50 ML IV SCH (14:02)
[2024-09-22 05:23] LABS: ABS Eosinophils 0.2 10^3/uL (0.0-0.5); ABS Lymphocytes 0.9 10^3/uL (1.0-4.8); ABS Monocytes 1.1 10^3/uL (0.0-0.9); ABS Neutrophils 4.3 10^3/uL (1.5-7.6); Eosinophil % 2.4 %; Hematocrit 29.8 % (35-45); Hemoglobin 10.1 g/dL (11.5-14.3); Lymphocyte % 13.9 %; Mean Corpuscular Hemoglobin 37.1 pg (27-33); Mean Corpuscular Hgb Conc 33.8 g/dL (31-36); Mean Corpuscular Volume 109.9 fL (80-97); Mean Platelet Volume 7.4 fL (7.5-11.2); Nucleated Red Blood Cells % 0.1 %/100WBC (0.0-0.8); Platelet Count 59 10^3/uL (150-450); Red Blood Count 2.71 10^6/uL (3.63-4.92); Red Cell Distribution Width 19.8 % (12-17); White Blood Count 6.6 10^3/uL (3.8-11.8)
[2024-09-22 05:33] LABS: Calcium 7.9 mg/dL (8.6-10.3); Creatinine, Serum 0.76 mg/dL (0.51-0.95); Magnesium 2.2 mg/dL (1.9-2.7); Potassium 4.6 mmol/L (3.5-5.0); eGFR CKD-EPI 76.7 (>60)
[2024-09-22] MEDS: Lactulose 30 ml UDC NG TUBE SCH (07:45)
[2024-09-22] MEDS ORDERED: Acetaminophen IV 1 GM/100ML 1,000 MG/100 ML BAG IV PRN (18:13)
[2024-09-23 04:49] LABS: ABS Eosinophils 0.2 10^3/uL (0.0-0.5); ABS Lymphocytes 0.9 10^3/uL (1.0-4.8); ABS Monocytes 0.9 10^3/uL (0.0-0.9); ABS Neutrophils 3.1 10^3/uL (1.5-7.6); ABS Nucleated RBC 0.01 10^3/ul; Eosinophil % 3.2 %; Hematocrit 31.8 % (35-45); Lymphocyte % 16.9 %; Mean Corpuscular Hgb Conc 34.5 g/dL (31-36); Mean Corpuscular Volume 110.3 fL (80-97); Mean Platelet Volume 7.8 fL (7.5-11.2); Nucleated Red Blood Cells % 0.1 %/100WBC (0.0-0.8); Platelet Count 68 10^3/uL (150-450); Red Blood Count 2.88 10^6/uL (3.63-4.92); Red Cell Distribution Width 20.3 % (12-17); White Blood Count 5.1 10^3/uL (3.8-11.8)
[2024-09-23 05:08] LABS: Blood Urea Nitrogen 21 mg/dL (6-24); CO2 Carbon Dioxide 31 mmol/L (22-32); Calcium 8.3 mg/dL (8.6-10.3); Chloride 110 mmol/L (101-111); Creatinine, Serum 0.76 mg/dL (0.51-0.95); Glucose 134 mg/dL (70-100); Magnesium 2.3 mg/dL (1.9-2.7); Potassium 4.5 mmol/L (3.5-5.0); Sodium 141 mmol/L (135-145); eGFR CKD-EPI 76.7 (>60)
[2024-09-23] MEDS: Lactulose 30 ml UDC NG TUBE SCH (20:59)
[2024-09-24] MEDS: Propofol 10 mg/ml 100 ML BTL 1,000 MG/100 ML BTL ONE (03:15)
[2024-09-24] MEDS: Rocuronium 50 mg VIAL 10 mg/ml 5 ml VIAL (50 mg) ONE ×2 (03:16)
[2024-09-24 05:32] LABS: Calcium 8.1 mg/dL (8.6-10.3); Creatinine, Serum 0.68 mg/dL (0.51-0.95); Magnesium 2.2 mg/dL (1.9-2.7); Potassium 4.7 mmol/L (3.5-5.0); eGFR CKD-EPI 85.3 (>60)
[2024-09-24 05:42] LABS: ABS Eosinophils 0.1 10^3/uL (0.0-0.5); ABS Lymphocytes 0.8 10^3/uL (1.0-4.8); ABS Monocytes 0.9 10^3/uL (0.0-0.9); ABS Neutrophils 2.5 10^3/uL (1.5-7.6); ABS Nucleated RBC 0.02 10^3/ul; Eosinophil % 3.1 %; Hematocrit 31.8 % (35-45); Hemoglobin 10.5 g/dL (11.5-14.3); Lymphocyte % 19.5 %; Mean Corpuscular Hemoglobin 37.9 pg (27-33); Mean Corpuscular Hgb Conc 32.9 g/dL (31-36); Mean Corpuscular Volume 115.4 fL (80-97); Mean Platelet Volume 7.3 fL (7.5-11.2); Nucleated Red Blood Cells % 0.4 %/100WBC (0.0-0.8); Platelet Count 60 10^3/uL (150-450); Red Blood Count 2.76 10^6/uL (3.63-4.92); White Blood Count 4.3 10^3/uL (3.8-11.8)
[2024-09-24] MEDS: levETIRAcetam IV 750 MG in NS 0.9% 100 ml BAG 100 ML IVPB SCH (21:29)
[2024-09-24] MEDS: Lactulose 30 ml UDC NG TUBE SCH (22:04)
[2024-09-25 04:43] LABS: Hematocrit 31.4 % (35-45); Hemoglobin 10.9 g/dL (11.5-14.3); Mean Corpuscular Hemoglobin 38.3 pg (27-33); Mean Corpuscular Hgb Conc 34.6 g/dL (31-36); Mean Corpuscular Volume 110.7 fL (80-97); Red Blood Count 2.84 10^6/uL (3.63-4.92); Red Cell Distribution Width 21.1 % (12-17); White Blood Count 4.5 10^3/uL (3.8-11.8)
[2024-09-25 04:46] LABS: Blood Urea Nitrogen 20 mg/dL (6-24); CO2 Carbon Dioxide 33 mmol/L (22-32); Calcium 8.4 mg/dL (8.6-10.3); Chloride 108 mmol/L (101-111); Creatinine, Serum 0.72 mg/dL (0.51-0.95); Glucose 140 mg/dL (70-100); Magnesium 2.3 mg/dL (1.9-2.7); Potassium 4.6 mmol/L (3.5-5.0); Sodium 139 mmol/L (135-145); eGFR CKD-EPI 81.9 (>60)
[2024-09-25 05:50] LABS: ABS Eosinophils 0.2 10^3/uL (0.0-0.5); ABS Lymphocytes 0.8 10^3/uL (1.0-4.8); ABS Neutrophils 2.5 10^3/uL (1.5-7.6); ABS Nucleated RBC 0.02 10^3/ul; Eosinophil % 3.9 %; Large Platelets Present; Lymphocyte % 18.2 %; Mean Platelet Volume 8.4 fL (7.5-11.2); Nucleated Red Blood Cells % 0.4 %/100WBC (0.0-0.8); Platelet Count 71 10^3/uL (150-450)
[2024-09-25] MEDS: Acetaminophen IV 1 GM/100ML 1,000 MG/100 ML BAG IV PRN (10:22)
[2024-09-25] MEDS: Glycerin ADULT 2.4 gm SUPP PR ONE (10:36)
[2024-09-25] MEDS: Lactulose 30 ml UDC NG TUBE SCH (16:07)
[2024-09-25] MEDS: Lactulose 300 ML for PR 200 GM/300 ML BTL PR SCH (17:51)
[2024-09-25] MEDS: levETIRAcetam 500 MG IVPREMIX 500 MG/100 ML BAG IV SCH (21:31)
[2024-09-26 01:05] LABS: Urine Appearance Clear; Urine Bilirubin Negative (Negative); Urine Blood Negative (Negative); Urine Color Yellow; Urine Glucose Negative (Negative); Urine Ketones Trace (Negative); Urine Nitrite Negative (Negative); Urine Protein Negative (Negative); Urine Specific Gravity 1.029 (1.002-1.030); Urine Urobilinogen 3+ (Negative)
[2024-09-26] MEDS: Lactulose 30 ml UDC NG TUBE SCH (02:32)
[2024-09-27 07:06] LABS: ABS Eosinophils 0.2 10^3/uL (0.0-0.5); ABS Lymphocytes 1.2 10^3/uL (1.0-4.8); ABS Monocytes 1.2 10^3/uL (0.0-0.9); ABS Neutrophils 3.5 10^3/uL (1.5-7.6); ABS Nucleated RBC 0.01 10^3/ul; Calcium 7.9 mg/dL (8.6-10.3); Creatinine, Serum 0.58 mg/dL (0.51-0.95); Hematocrit 35.1 % (35-45); Hemoglobin 11.8 g/dL (11.5-14.3); Lymphocyte % 20.1 %; Mean Corpuscular Hemoglobin 37.6 pg (27-33); Mean Corpuscular Hgb Conc 33.7 g/dL (31-36); Mean Corpuscular Volume 111.7 fL (80-97); Mean Platelet Volume 8.3 fL (7.5-11.2); Nucleated Red Blood Cells % 0.2 %/100WBC (0.0-0.8); Platelet Count 75 10^3/uL (150-450); Potassium 5.3 mmol/L (3.5-5.0); Red Blood Count 3.14 10^6/uL (3.63-4.92); Red Cell Distribution Width 21.2 % (12-17); White Blood Count 6.1 10^3/uL (3.8-11.8); eGFR CKD-EPI 88.6 (>60)
[2024-09-27] MEDS ORDERED: Simethicone SUSP ORALSYR 66.66 MG/ML PO PRN (08:31)
[2024-09-27] MEDS: Lactulose 30 ml UDC PO SCH (15:02)
[2024-09-27] MEDS ORDERED: Lactulose 30 ml UDC PO SCH (17:00)
[2024-09-28 12:15] LABS: Calcium 8.1 mg/dL (8.6-10.3); Creatinine, Serum 0.62 mg/dL (0.51-0.95); Potassium 4.7 mmol/L (3.5-5.0); eGFR CKD-EPI 87.2 (>60)
[2024-09-28] MEDS ORDERED: Rocuronium 50 mg VIAL 10 mg/ml 5 ml VIAL (50 mg) ONE (12:31)
[2024-09-28] MEDS ORDERED: Etomidate 40 mg/20 ml (2 MG/ML) 20 ml VIAL (40 mg) ONE (12:31)
[2024-10-02 10:51] LABS: ABS Eosinophils 0.2 10^3/uL (0.0-0.5); ABS Monocytes 0.9 10^3/uL (0.0-0.9); ABS Neutrophils 2.8 10^3/uL (1.5-7.6); ABS Nucleated RBC 0.01 10^3/ul; Eosinophil % 3.4 %; Hematocrit 34.5 % (35-45); Hemoglobin 11.9 g/dL (11.5-14.3); Lymphocyte % 33.4 %; Mean Corpuscular Hemoglobin 38.9 pg (27-33); Mean Corpuscular Hgb Conc 34.3 g/dL (31-36); Mean Corpuscular Volume 113.2 fL (80-97); Mean Platelet Volume 7.7 fL (7.5-11.2); Nucleated Red Blood Cells % 0.3 %/100WBC (0.0-0.8); Platelet Count 91 10^3/uL (150-450); Red Blood Count 3.05 10^6/uL (3.63-4.92); Red Cell Distribution Width 22.2 % (12-17); White Blood Count 5.9 10^3/uL (3.8-11.8)
[2024-10-02 11:34] LABS: Calcium 7.9 mg/dL (8.6-10.3); Creatinine, Serum 0.65 mg/dL (0.51-0.95); Potassium 4.4 mmol/L (3.5-5.0); eGFR CKD-EPI 86.2 (>60)
[2024-10-02] MEDS: Furosemide 20 mg/2 ml IV VIAL IV SLOW PU ONE (15:19)
[2024-10-03] MEDS: Morphine 2 MG/ML SYRINGE IV ONE (02:12)
[2024-10-03] MEDS: Ondansetron 4 mg VIAL 2 MG/ML 2 ml VIAL IV PRN (17:56)
[2024-10-05 11:46] LABS: Albumin 1.8 g/dL (3.5-5.7); Albumin/Globulin Ratio 0.6 (1-3); Calcium 7.9 mg/dL (8.6-10.3); Creatinine, Serum 0.77 mg/dL (0.51-0.95); Direct Bilirubin 1.1 mg/dL (0.03-0.18); Indirect Bilirubin 1.5 mg/dL (0.3-1.0); Potassium 4.5 mmol/L (3.5-5.0); Total Bilirubin 2.6 mg/dL (0.2-1.0); Total Protein 4.8 g/dL (6.4-8.9); eGFR CKD-EPI 75.5 (>60)
[2024-10-07 10:01] LABS: Hematocrit 35.4 % (35-45); Hemoglobin 12.4 g/dL (11.5-14.3); Mean Corpuscular Hemoglobin 39.3 pg (27-33); Mean Corpuscular Volume 112.4 fL (80-97); Red Blood Count 3.15 10^6/uL (3.63-4.92); Red Cell Distribution Width 21.5 % (12-17); White Blood Count 3.6 10^3/uL (3.8-11.8)
[2024-10-07 10:18] LABS: Albumin 1.8 g/dL (3.5-5.7); Albumin/Globulin Ratio 0.6 (1-3); C Reactive Protein 16.8 mg/L (<8.01); Calcium 7.8 mg/dL (8.6-10.3); Creatinine, Serum 0.8 mg/dL (0.51-0.95); Globulin 2.9 g/dL (2-4); Magnesium 1.6 mg/dL (1.9-2.7); Potassium 4.4 mmol/L (3.5-5.0); Total Bilirubin 2.6 mg/dL (0.2-1.0); Total Protein 4.7 g/dL (6.4-8.9); eGFR CKD-EPI 72.2 (>60)
[2024-10-07 10:24] LABS: ABS Eosinophils 0.2 10^3/uL (0.0-0.5); ABS Lymphocytes 1.1 10^3/uL (1.0-4.8); ABS Monocytes 0.7 10^3/uL (0.0-0.9); ABS Neutrophils 1.6 10^3/uL (1.5-7.6); ABS Nucleated RBC 0.01 10^3/ul; Eosinophil % 4.3 %; Lymphocyte % 29.7 %; Mean Platelet Volume 8.1 fL (7.5-11.2); Nucleated Red Blood Cells % 0.3 %/100WBC (0.0-0.8); Platelet Count 62 10^3/uL (150-450)
[2024-10-07] MEDS: Piperacillin/Tazobac 3.375 BAG 3.375 GM/100 ML BAG IV ONE (12:42)
[2024-10-07] MEDS ORDERED: Zosyn per Pharmacy NOTE FOLLOW UP SCH (13:00)
[2024-10-07] MEDS: ZOSYN 3.375 GM Q8H per EXTENDED INFUSION IV SCH (14:13)
[2024-10-08 06:01] LABS: Hematocrit 36.3 % (35-45); Hemoglobin 12.4 g/dL (11.5-14.3); Mean Corpuscular Hemoglobin 38.3 pg (27-33); Mean Corpuscular Hgb Conc 34.1 g/dL (31-36); Mean Corpuscular Volume 112.1 fL (80-97); Red Blood Count 3.24 10^6/uL (3.63-4.92); Red Cell Distribution Width 20.9 % (12-17); White Blood Count 3.3 10^3/uL (3.8-11.8)
[2024-10-08 06:26] LABS: Albumin 1.9 g/dL (3.5-5.7); Albumin/Globulin Ratio 0.6 (1-3); Calcium 7.9 mg/dL (8.6-10.3); Creatinine, Serum 0.85 mg/dL (0.51-0.95); Globulin 3.1 g/dL (2-4); Potassium 4.2 mmol/L (3.5-5.0); Total Bilirubin 3.2 mg/dL (0.2-1.0); eGFR CKD-EPI 67.1 (>60)
[2024-10-08 07:05] LABS: ABS Eosinophils 0.1 10^3/uL (0.0-0.5); ABS Lymphocytes 0.8 10^3/uL (1.0-4.8); ABS Monocytes 0.6 10^3/uL (0.0-0.9); ABS Neutrophils 1.7 10^3/uL (1.5-7.6); ABS Nucleated RBC 0.01 10^3/ul; Eosinophil % 3.7 %; Lymphocyte % 23.2 %; Mean Platelet Volume 7.9 fL (7.5-11.2); Nucleated Red Blood Cells % 0.3 %/100WBC (0.0-0.8); Platelet Count 67 10^3/uL (150-450)
[2024-10-08] MEDS: Iohexol 350 (CONTRAST) 500 ML MDV IV ONE (09:27)
[2024-10-08] MEDS: Magnesium Sulf 4 GM/100 ML IV 4,000 MG/100 ML BAG IVPB ONE (11:32)
[2024-10-08 12:03] LABS: Body Fluid Appearance Clear; Body Fluid Color Yellow; Body Fluid Source Peritonial Fluid
[2024-10-08 12:09] LABS: Body Fluid Total Nucleated 42 /mcL
[2024-10-08 14:49] LABS: Body Fluid Mono 65 %; Body Fluid Other Cells 3; Body Fluid Total Cells Counted 200
[2024-10-09] MEDS: HYDROmorphone 0.5 MG/0.5 ML SYRINGE IV ONE (03:07)
[2024-10-09] MEDS: HYDROmorphone 0.5 MG/0.5 ML SYRINGE ONE (03:08)
[2024-10-09 06:36] LABS: Calcium 7.6 mg/dL (8.6-10.3); Creatinine, Serum 0.86 mg/dL (0.51-0.95); Potassium 4.7 mmol/L (3.5-5.0); eGFR CKD-EPI 66.2 (>60)
[2024-10-09 16:31] LABS: Lactate Dehydrogenase, BF 43 U/L
[2024-10-09 16:55] LABS: Albumin, BF 0.5 g/dL; Fluid Type, Albumin PERITONEAL FLUID; Fluid Type, Protein, Total PERITONEAL FLUID; Glucose, BF 91 mg/dL; Total Protein, BF 0.6 g/dL
[2024-10-10 07:23] LABS: Calcium 7.2 mg/dL (8.6-10.3); Creatinine, Serum 0.82 mg/dL (0.51-0.95); Magnesium 1.8 mg/dL (1.9-2.7); Potassium 4.7 mmol/L (3.5-5.0); eGFR CKD-EPI 70.1 (>60)
[2024-10-10] MEDS: Magnesium Sulfate 2 gm BAG 2 GM/50 ML BAG IVPB ONE (09:55)
[2024-10-13 07:02] LABS: Calcium 7.5 mg/dL (8.6-10.3); Creatinine, Serum 0.79 mg/dL (0.51-0.95); Potassium 4.9 mmol/L (3.5-5.0); eGFR CKD-EPI 73.3 (>60)
[2024-10-13 08:17] LABS: Hematocrit 31.9 % (35-45); Mean Corpuscular Hemoglobin 39.4 pg (27-33); Mean Corpuscular Hgb Conc 34.6 g/dL (31-36); Mean Corpuscular Volume 113.8 fL (80-97); Mean Platelet Volume 8.4 fL (7.5-11.2); Platelet Count 58 10^3/uL (150-450); Red Blood Count 2.81 10^6/uL (3.63-4.92); Red Cell Distribution Width 20.3 % (12-17); White Blood Count 5.3 10^3/uL (3.8-11.8)
[2024-10-14 09:38] LABS: ABS Eosinophils 0.2 10^3/uL (0.0-0.5); ABS Lymphocytes 1.4 10^3/uL (1.0-4.8); ABS Neutrophils 3.4 10^3/uL (1.5-7.6); ABS Nucleated RBC 0.01 10^3/ul; Eosinophil % 2.5 %; Hematocrit 35.8 % (35-45); Hemoglobin 12.6 g/dL (11.5-14.3); Mean Corpuscular Hemoglobin 39.7 pg (27-33); Mean Corpuscular Hgb Conc 35.2 g/dL (31-36); Mean Corpuscular Volume 112.6 fL (80-97); Mean Platelet Volume 7.5 fL (7.5-11.2); Nucleated Red Blood Cells % 0.1 %/100WBC (0.0-0.8); Platelet Count 76 10^3/uL (150-450); Red Blood Count 3.18 10^6/uL (3.63-4.92); Red Cell Distribution Width 19.9 % (12-17); White Blood Count 5.9 10^3/uL (3.8-11.8)
[2024-10-14 10:01] VITALS: BP 108/48
[2024-10-14 10:58] LABS: Calcium 7.7 mg/dL (8.6-10.3); Creatinine, Serum 0.81 mg/dL (0.51-0.95); Magnesium 1.8 mg/dL (1.9-2.7); Potassium 4.8 mmol/L (3.5-5.0); eGFR CKD-EPI 71.1 (>60)
== END 2024-10-14 13:10 | DRG 870 ==
LOC: ED 12:15 → EDHOLD 14:46 → ICU 14:46 → SUATTDRO 14:46 → ICU 15:28 → MED 09-25 12:56
PROVIDERS: ADMIT Internal Medicine; ATTEND Internal Medicine